=== PATIENT | male | born 1990 | race Two or more races ===

== ENCOUNTER 2020-10-04 11:35 | Emergency (ER) | payer BC ==
[~2020-10-04] VITALS: Ht 193 cm; Wt 83.9 kg
[2020-10-04 11:43] VITALS: BP 124/68
--- NOTE | 2020-10-04 11:45 | NUR ---
THE PATIENT IS BIBS FOR 0.5 CM LACERATION,LEFT INDEX FINGER, SUSTAINED YESTERDAY. DENIES PAIN AT THIS TIME. WILL CONTINUE TO MONITOR THE PATIENT.
--- NOTE | 2020-10-04 12:09 | NUR ---
Patient discharged to home in stable condition. Written and verbal after care instructions given. Patient verbalizes understanding of instruction.
== END 2020-10-04 12:09 | disposition home or self-care (01) ==
LOC: ER 11:51
DX: S61.211A Laceration without foreign body of left index finger without damage to nail, initial encounter (principal); Z60.2 Problems related to living alone; W25.XXXA Contact with sharp glass, initial encounter; Y93.89 Activity, other specified; Y92.89 Other specified places as the place of occurrence of the external cause; Y99.8 Other external cause status